=== PATIENT | female | born 1995 ===

== ENCOUNTER 2020-05-01 16:35 | Emergency (ER) | payer OTHER ==
[2020-05-01] MEDS ORDERED: dexAMETHasone 20 MG/5 ML VIAL IV ONE (17:28)
[2020-05-01] MEDS ORDERED: FAMOTIDINE 20 MG/2 ML INJ IV ONE (17:28)
[2020-05-01] MEDS ORDERED: diphenhydrAMINE 50 MG/ML VIAL IV ONE (17:29)
--- NOTE | 2020-05-01 17:31 | Emergency Department Report ---
HPI - General Chief Complaint: Allergic Reaction PUI?: No Time Seen by Provider: 05/01/20 17:26 - HPI HPI: 24-year-old female presents to the emergency room for allergic reaction that started this morning. Patient states that she has a breakout on her face felt that it was going down her neck. Patient denies any chest pain shortness of breath no wheezing no difficulty swallowing. Patient is unaware of the offending agent. Patient does have a past medical history of acid reflux and is currently taking promethazine Bentyl and omeprazole. She takes Zoloft for anxiety. ED Past Medical Hx - Past Medical History Previous Medical History?: No - Surgical History Past Surgical History?: No - Medications Home Medications: Home Medications Medication Instructions Recorded Confirmed Last Taken Type Cetirizine HCl [Zyrtec 10mg tab] 10 mg PO QDAY #14 tablet 05/01/20 Unknown Rx Famotidine [Pepcid] 20 mg PO BID 7 Days #14 tablet 05/01/20 Unknown Rx Prednisone [predniSONE 10 mg 10 mg PO .TAPER #1 tab.ds.pk 05/01/20 Unknown Rx (6-Day Pack, 21 Tabs)] ED Review of Systems ROS: Stated complaint: ALLERGIC REACTION Other details as noted in HPI Physical Exam - Physical Exam Vital Signs: Vital Signs 05/01/20 17:20 Temperature 99 F Pulse Rate 62 Respiratory 20 Rate Blood Pressure 117/79 [Right] O2 Sat by Pulse 98 Oximetry General: Gen: alert oriented NAD Cardic: regular rate and rhythm no murmurs appreciated Resp: Clear to auscultation bilateral no wheezing no rales or rhonchi. Abdomen: Soft nontender nondistended normal bowel sounds. Skin: Mild erythematous papular lesions to the forehead and cheeks of patient. ED Course Vital Signs 05/01/20 17:20 Temperature 99 F Pulse Rate 62 Respiratory 20 Rate Blood Pressure 117/79 [Right] O2 Sat by Pulse 98 Oximetry ED Medical Decision Making - Medical Decision Making 24-year-old female presents to the emergency room for allergic reaction that started this morning. Patient states that she has a breakout on her face felt that it was going down her neck. Patient denies any chest pain shortness of breath no wheezing no difficulty swallowing. Patient is unaware of the offending agent. Patient does have a past medical history of acid reflux and is currently taking promethazine Bentyl and omeprazole. She takes Zoloft for anxiety. IV insertion with dexamethasone 10 mg, Pepcid 20 mg IV and Benadryl 50 mg IV. Critical care attestation.: If time is entered above; I have spent that time in minutes in the direct care of this critically ill patient, excluding procedure time. ED Disposition Clinical Impression: Allergic reaction Disposition: DC-01 TO HOME OR SELFCARE Is pt being admited?: No Does the pt Need Aspirin: No Condition: Stable Instructions: Allergies, Adult, [id number] Additional Instructions: Please take medication as prescribed. Return back to the emergency room with any worsening symptoms difficulty breathing difficulty swallowing. Prescriptions: Famotidine [Pepcid] 20 mg PO BID 7 Days #14 tablet Prednisone [predniSONE 10 mg (6-Day Pack, 21 Tabs)] 10 mg PO .TAPER #1 tab.ds.pk Cetirizine HCl [Zyrtec 10mg tab] 10 mg PO QDAY #14 tablet Referrals: [facility] [Provider Group] - 3-5 Days Forms: Work/School Release Form(ED)
[2020-05-01 19:14] VITALS: BP 113/70
== END 2020-05-01 19:14 | disposition home or self-care (01) ==
LOC: ED 16:35
DX: T78.40XA Allergy, unspecified, initial encounter (principal); Z79.899 Other long term (current) drug therapy; X58.XXXA Exposure to other specified factors, initial encounter
CPT/HCPCS: 96374; 96375; 99282; J1100; J1200

== ENCOUNTER 2020-07-29 13:50 | Emergency (ER) | payer SELFPAY ==
--- NOTE | 2020-07-29 15:59 | Emergency Department Report ---
ED General Adult HPI - General Chief complaint: Extremity Problem,Nontraumatic Stated complaint: RING REMOVAL Time Seen by Provider: 07/29/20 14:03 Source: patient Mode of arrival: Ambulatory Limitations: No Limitations - History of Present Illness Initial comments: 24-year-old -[place] female presents with complaints of ring being stuck on the right ring finger today. She rates her pain as 7/10 in severity. She states she went to the fire department initially and they were unable to remove it. She denies any difficulty moving her finger -: Sudden - Related Data Previous Rx's Medication Instructions Recorded Last Taken Type Cetirizine HCl [Zyrtec 10mg tab] 10 mg PO QDAY #14 tablet 05/01/20 Unknown Rx Famotidine [Pepcid] 20 mg PO BID 7 Days #14 tablet 05/01/20 Unknown Rx Prednisone [predniSONE 10 mg 10 mg PO .TAPER #1 tab.ds.pk 05/01/20 Unknown Rx (6-Day Pack, 21 Tabs)] Allergies Allergy/AdvReac Type Severity Reaction Status Date / Time No Known Allergies Allergy Unverified 05/01/20 17:19 ED Review of Systems ROS: Stated complaint: RING REMOVAL Other details as noted in HPI Musculoskeletal: joint swelling, arthralgia Neurological: numbness ED Past Medical Hx - Past Medical History Previous Medical History?: No - Surgical History Past Surgical History?: No - Medications Home Medications: Home Medications Medication Instructions Recorded Confirmed Last Taken Type Cetirizine HCl [Zyrtec 10mg tab] 10 mg PO QDAY #14 tablet 05/01/20 Unknown Rx Famotidine [Pepcid] 20 mg PO BID 7 Days #14 tablet 05/01/20 Unknown Rx Prednisone [predniSONE 10 mg 10 mg PO .TAPER #1 tab.ds.pk 05/01/20 Unknown Rx (6-Day Pack, 21 Tabs)] ED Physical Exam - General Limitations: No Limitations General appearance: alert, in no apparent distress - Head Head exam: Present: atraumatic, normocephalic - Respiratory Respiratory exam: Absent: respiratory distress - Cardiovascular Cardiovascular Exam: Present: regular rate - Extremities Exam Extremities exam: Present: other (Range noted to right ring finger with constriction; patient retains normal sensation and range of motion of the finger; normal perfusion is noted however the finger is moderately swollen) - Neurological Exam Neurological exam: Present: alert, oriented X3 - Psychiatric Psychiatric exam: Present: normal affect, normal mood ED Course Vital Signs 07/29/20 16:26 Temperature 98 F Pulse Rate 88 Respiratory 16 Rate Blood Pressure 132/60 [Right] O2 Sat by Pulse 18 L Oximetry ED Medical Decision Making - Medical Decision Making 24-year-old -[place] female presents with complaints of ring being stuck on the right ring finger today. She rates her pain as 7/10 in severity. She states she went to the fire department initially and they were unable to remove it. She denies any difficulty moving her finger Ring successively removed with ring cutter. Patient tolerated procedure well without any immediate complications. She has normal perfusion of the finger post procedure. She also has normal sensation. Discussed icing and elevation and signs and symptoms that should prompt immediate return to the emergency department in detail with patient who verbalized understanding. Critical care attestation.: If time is entered above; I have spent that time in minutes in the direct care of this critically ill patient, excluding procedure time. ED Disposition Clinical Impression: Ring or other jewelry causing external constriction, initial encounter Disposition: DC-01 TO HOME OR SELFCARE Is pt being admited?: No Condition: Stable Instructions: Finger Sprain, Adult, [id number] Referrals: [facility] [Provider Group] - 3-5 Days
[2020-07-29 16:26] VITALS: BP 132/60
== END 2020-07-29 16:27 | disposition home or self-care (01) ==
LOC: ED 13:50
DX: M79.644 Pain in right finger(s) (principal); Z79.899 Other long term (current) drug therapy; W49.04XA Ring or other jewelry causing external constriction, initial encounter; Y93.89 Activity, other specified; Y92.89 Other specified places as the place of occurrence of the external cause; Y99.8 Other external cause status
CPT/HCPCS: 99281